=== PATIENT | male | born 1980 | race Two or more races ===

== ENCOUNTER 2019-05-02 15:59 | Emergency (ER) | payer OTHER ==
[~2019-05-02] VITALS: Ht 167.6 cm; Wt 99.8 kg
[~2019-05-02 15:59] MED LIST: ATENOLOL25 GM; PNEU16DI2
[2019-05-02] MEDS ORDERED: ADVAIR HFA 45/212 GM (16:25)
[2019-05-02] MEDS ORDERED: SINGULAIR 5MG5 MG (16:25)
[2019-05-02] MEDS ORDERED: MECLIZINE HCL12.5 MG (16:26)
== END 2019-05-02 19:00 | disposition home or self-care (01) ==
LOC: ER 15:59
DX: R00.2 Palpitations (principal); F06.4 Anxiety disorder due to known physiological condition

== ENCOUNTER 2020-11-19 12:32 | Outpatient (CLI) | payer OTHER ==
[~2020-11-19 12:32] MED LIST changes: +ADVAIR HFA 45/212 GM; +MECLIZINE HCL12.5 MG; +SINGULAIR 5MG5 MG
== END 2020-11-19 12:36 | disposition home or self-care (01) ==
LOC: LAB 12:32
PROVIDERS: ATTEND General Practice
DX: Z20.828 Contact with and (suspected) exposure to other viral communicable diseases (principal)

== ENCOUNTER 2023-01-28 19:36 | Emergency (ER) | payer OTHER ==
[~2023-01-28] VITALS: Ht 167.6 cm; Wt 99.8 kg
[2023-01-28] MEDS ORDERED: PEPCID AC20 MG PO (22:27)
[2023-01-28] MEDS ORDERED: CARAFATE1 GM PO (22:27)
== END 2023-01-28 22:39 | disposition home or self-care (01) ==
LOC: ER 19:36
DX: R11.10 Vomiting, unspecified (principal); R11.0 Nausea; R10.13 Epigastric pain; Z20.822 Contact with and (suspected) exposure to COVID-19; R10.9 Unspecified abdominal pain